=== PATIENT | male | born 1950 | race Caucasian/White ===

== ENCOUNTER 2021-03-05 08:23 | Day surgery (SDC) | payer OTHER ==
[~2021-03-05] VITALS: Ht 177.8 cm; Wt 89.0 kg
== END 2021-03-05 13:02 | disposition home or self-care (01) ==
LOC: CACL 08:23
PROVIDERS: ATTEND Internal Medicine Cardiovascular Disease
DX: R94.39 Abnormal result of other cardiovascular function study (principal); I25.110 Atherosclerotic heart disease of native coronary artery with unstable angina pectoris; I25.83 Coronary atherosclerosis due to lipid rich plaque; F12.10 Cannabis abuse, uncomplicated; Z79.891 Long term (current) use of opiate analgesic; Z79.899 Other long term (current) drug therapy; Z88.5 Allergy status to narcotic agent; Z83.42 Family history of familial hypercholesterolemia
CPT/HCPCS: 36415; 80048; 85025; 93458; 99156; C1769; C1894; J1644; J2250; J3010; Q9967